=== PATIENT | male | born 1945 | race Caucasian/White ===

== ENCOUNTER 2019-10-26 11:49 | Inpatient (IN) ==
[2019-10-26] MEDS ORDERED: *HR* HYDROmorphone (PF) 1 MG/ML SYRINGE IM ONE (12:10)
[2019-10-26] MEDS ORDERED: Ondansetron 4 MG/2 ML VIAL IM ONE (12:10)
[2019-10-26] MEDS ORDERED: Acetaminophen 325 MG TABLET PO PRN (14:41)
[2019-10-26] MEDS ORDERED: Naloxone 0.4 MG/ML INJ IVP PRN (14:41)
[2019-10-26] MEDS: *HR* Heparin 5,000 UNIT/ML VIAL SQ SCH (18:38)
[2019-10-26] MEDS: carvediloL 6.25 MG TABLET PO SCH (18:38)
[2019-10-26] MEDS: Magnesium Oxide 400 MG TABLET PO SCH (21:18)
[2019-10-26] MEDS: (Tacrolimus [Prograf] 1 MG) PO SCH (21:19)
[2019-10-26] MEDS: *HR* OxyCODONE Immed Rel 5 MG TABLET PO PRN (21:54)
[2019-10-27] MEDS: *HR* HYDROcodone/Acet 5/325 mg TABLET PO PRN ×3 (02:32→15:55)
[2019-10-27 02:59] LABS: Basophils % 0.4 %; Eosinophils % 0.4 %; Hemoglobin 12.4 g/dL (12.9-16.9); Immature Granulocytes % 0.4 % (0-4); Mean Corpuscular HGB Conc 32.6 g/dL (31.6-35.5); Mean Corpuscular Hemoglobin 30.8 pg (28.0-33.3); Mean Corpuscular Volume 94.5 fL (83.0-100.0); Mean Platelet Volume 9.9 fL (9.4-12.4); Monocytes # 0.8 K/mcL (0.0-1.3); Monocytes % 11.5 %; Platelet Count 215 K/mcL (140-400); Red Blood Count 4.02 M/mcL (4.19-5.50); Red Cell Distribution Width 13.6 % (11.5-14.5); Segmented Neutrophils % 72.3 %; White Blood Count 6.9 K/mcL (4.3-11.1)
[2019-10-27 03:19] LABS: BUN/Creatinine Ratio 24 (6-26); Blood Urea Nitrogen 26 mg/dL (8-23); Carbon Dioxide 28 mEq/L (23-29); Chloride 105 mEq/L (98-107); Glucose 118 mg/dL (70-105); Magnesium 1.8 mg/dL (1.6-2.6); Osmolality,Calculated 296 (280-300); Potassium 3.5 mEq/L (3.5-5.1); Sodium 140 mEq/L (136-145); eGFR For African Americans > 60 (> 60); eGFR For Non-African Americans > 60 (> 60)
[2019-10-27] MEDS: *HR* Heparin 5,000 UNIT/ML VIAL SQ SCH ×2 (06:24→15:55)
[2019-10-27] MEDS: Cholecalciferol (D-3) 1,000 UNIT (25MCG) TABLET PO SCH (08:36)
[2019-10-27] MEDS: NIFEdipine XL (24 HR) 30 MG TAB.ER.24 PO SCH (08:36)
[2019-10-27] MEDS: SODIUM ZIRCONIUM CYCLOSILICATE 5 GM POWD.PACK PO SCH (08:36)
[2019-10-27] MEDS: Magnesium Oxide 400 MG TABLET PO SCH ×2 (08:37→21:25)
[2019-10-27] MEDS: Primidone 50 MG TABLET PO SCH (08:38)
[2019-10-27] MEDS: carvediloL 6.25 MG TABLET PO SCH ×2 (08:38→15:55)
[2019-10-27] MEDS: (Tacrolimus [Prograf] 1 MG) PO SCH ×2 (08:38→21:27)
[2019-10-27] MEDS: *HR* OxyCODONE Immed Rel 5 MG TABLET PO PRN (21:26)
[2019-10-28] MEDS: *HR* Heparin 5,000 UNIT/ML VIAL SQ SCH ×2 (05:55→17:47)
[2019-10-28] MEDS: *HR* HYDROcodone/Acet 5/325 mg TABLET PO PRN ×2 (06:13→12:34)
[2019-10-28] MEDS: Primidone 50 MG TABLET PO SCH (09:19)
[2019-10-28] MEDS: carvediloL 6.25 MG TABLET PO SCH ×2 (09:20→17:47)
[2019-10-28] MEDS: Magnesium Oxide 400 MG TABLET PO SCH ×2 (09:21→21:03)
[2019-10-28] MEDS: NIFEdipine XL (24 HR) 30 MG TAB.ER.24 PO SCH (09:21)
[2019-10-28] MEDS: SODIUM ZIRCONIUM CYCLOSILICATE 5 GM POWD.PACK PO SCH (09:22)
[2019-10-28] MEDS: Cholecalciferol (D-3) 1,000 UNIT (25MCG) TABLET PO SCH (09:22)
[2019-10-28] MEDS: Sulfamethoxazole/Trimeth DS 1 EACH TABLET PO SCH (09:36)
[2019-10-28] MEDS: *HR* OxyCODONE Immed Rel 5 MG TABLET PO PRN ×2 (09:53→21:08)
[2019-10-28] MEDS ORDERED: Isovue-370 500 ML BOTTLE IVP ONE (10:16)
[2019-10-28] MEDS: (Tacrolimus [Prograf] 1 MG) PO SCH ×2 (11:20→21:04)
[2019-10-28] MEDS ORDERED: [UNRECOGNIZED DRUG - OTHER] IT ONE (12:17)
[2019-10-28] MEDS: 0.9 % Sodium Chloride 1,000 ML IVC SCH ×2 (12:35→22:48)
[2019-10-28] MEDS: Sennosides/Docusate Sodium TABLET PO SCH (21:03)
[2019-10-29 04:51] LABS: Basophils % 0.3 %; Eosinophils # 0.2 K/mcL (0.0-0.6); Eosinophils % 2.6 %; Hematocrit 38.4 % (37.5-50.1); Hemoglobin 12.4 g/dL (12.9-16.9); Immature Granulocytes % 0.6 % (0-4); Lymphocytes # 0.8 K/mcL (0.6-4.6); Lymphocytes % 12.4 %; Mean Corpuscular HGB Conc 32.3 g/dL (31.6-35.5); Mean Corpuscular Hemoglobin 30.6 pg (28.0-33.3); Mean Corpuscular Volume 94.8 fL (83.0-100.0); Mean Platelet Volume 9.9 fL (9.4-12.4); Monocytes # 0.7 K/mcL (0.0-1.3); Neutrophils # 4.7 K/mcL (1.6-8.9); Platelet Count 215 K/mcL (140-400); Red Blood Count 4.05 M/mcL (4.19-5.50); Red Cell Distribution Width 13.6 % (11.5-14.5); Segmented Neutrophils % 73.1 %; White Blood Count 6.5 K/mcL (4.3-11.1)
[2019-10-29 05:06] LABS: BUN/Creatinine Ratio 21 (6-26); Blood Urea Nitrogen 25 mg/dL (8-23); Calcium 8.3 mg/dL (8.6-10.3); Carbon Dioxide 27 mEq/L (23-29); Chloride 104 mEq/L (98-107); Glucose 103 mg/dL (70-105); Osmolality,Calculated 293 (280-300); Potassium 3.8 mEq/L (3.5-5.1); Sodium 139 mEq/L (136-145); eGFR For African Americans > 60 (> 60); eGFR For Non-African Americans > 60 (> 60)
[2019-10-29] MEDS: *HR* OxyCODONE Immed Rel 5 MG TABLET PO PRN ×2 (06:18→21:35)
[2019-10-29] MEDS: *HR* Heparin 5,000 UNIT/ML VIAL SQ SCH ×2 (06:35→18:48)
[2019-10-29] MEDS: carvediloL 6.25 MG TABLET PO SCH ×2 (07:51→18:48)
[2019-10-29] MEDS: Sennosides/Docusate Sodium TABLET PO SCH ×2 (07:51→21:35)
[2019-10-29] MEDS: SODIUM ZIRCONIUM CYCLOSILICATE 5 GM POWD.PACK PO SCH (07:51)
[2019-10-29] MEDS: NIFEdipine XL (24 HR) 30 MG TAB.ER.24 PO SCH (07:51)
[2019-10-29] MEDS: Cholecalciferol (D-3) 1,000 UNIT (25MCG) TABLET PO SCH (07:51)
[2019-10-29] MEDS: Primidone 50 MG TABLET PO SCH (07:52)
[2019-10-29] MEDS: Magnesium Oxide 400 MG TABLET PO SCH ×2 (07:52→21:35)
[2019-10-29] MEDS: (Tacrolimus [Prograf] 1 MG) PO SCH ×2 (08:05→21:36)
[2019-10-29 17:20] LABS: Activated Partial Thrombo Time 28.1 Seconds (26.0-36.0)
[2019-10-29 17:38] LABS: Prothrombin Time 11.2 Seconds (9.4-12.1)
[2019-10-30] MEDS: *HR* Heparin 5,000 UNIT/ML VIAL SQ SCH (04:59)
[2019-10-30 05:25] LABS: BUN/Creatinine Ratio 21 (6-26); Blood Urea Nitrogen 23 mg/dL (8-23); Calcium 8.9 mg/dL (8.6-10.3); Carbon Dioxide 28 mEq/L (23-29); Chloride 102 mEq/L (98-107); Glucose 87 mg/dL (70-105); Osmolality,Calculated 287 (280-300); Potassium 3.7 mEq/L (3.5-5.1); Sodium 137 mEq/L (136-145); eGFR For African Americans > 60 (> 60); eGFR For Non-African Americans > 60 (> 60)
[2019-10-30] MEDS ORDERED: Bacitracin 50,000 UNIT, Polymyxin B Sulfate 500,000 UNIT, Sodium Chloride IRRigation 1,... IR ONE (06:00)
[2019-10-30] MEDS: Magnesium Oxide 400 MG TABLET PO SCH (08:44)
[2019-10-30] MEDS: carvediloL 6.25 MG TABLET PO SCH ×3 (08:45→22:40)
[2019-10-30] MEDS: SODIUM ZIRCONIUM CYCLOSILICATE 5 GM POWD.PACK PO SCH (08:45)
[2019-10-30] MEDS: Primidone 50 MG TABLET PO SCH (08:45)
[2019-10-30] MEDS: NIFEdipine XL (24 HR) 30 MG TAB.ER.24 PO SCH (08:46)
[2019-10-30] MEDS: Cholecalciferol (D-3) 1,000 UNIT (25MCG) TABLET PO SCH (08:46)
[2019-10-30] MEDS: Sennosides/Docusate Sodium TABLET PO SCH (08:47)
[2019-10-30] MEDS: (Tacrolimus [Prograf] 1 MG) PO SCH (08:53)
[2019-10-30] MEDS: Sulfamethoxazole/Trimeth DS 1 EACH TABLET PO SCH (08:53)
[2019-10-30] MEDS ORDERED: Dexamethasone 4 MG/ML VIAL ONE (10:44)
[2019-10-30] MEDS ORDERED: Ondansetron 4 MG/2 ML VIAL ONE (10:44)
[2019-10-30] MEDS ORDERED: Lidocaine HCL 4 ML Topical Solution (Laryng-O-Jet Kit Sterile Pak) TP ONE (10:44)
[2019-10-30] MEDS ORDERED: *HR* Rocuronium Bromide 50 MG/5 ML VIAL ONE (10:44)
[2019-10-30] MEDS ORDERED: Lidocaine -MPF 2% 2 ML VIAL ONE (10:44)
[2019-10-30] MEDS ORDERED: *HR* FentaNYL (PF) 100 MCG/2 ML VIAL ONE (10:45)
[2019-10-30] MEDS ORDERED: *HR* Propofol 200 MG/20 ML VIAL IVP ONE (10:46)
[2019-10-30] MEDS ORDERED: *HR* Succinylcholine 200 MG/10 ML VIAL IVP ONE (10:46)
[2019-10-30] MEDS ORDERED: *HR* Remifentanil 1 MG VIAL IVP ONE (10:53)
[2019-10-30] MEDS ORDERED: *HR* PHENYLEPHRINE 1,000 MCG/10 ML SYRINGE IVP ONE (12:32)
[2019-10-30] MEDS ORDERED: *HR* Phenylephrine 10 MG/ML VIAL ONE (12:41)
[2019-10-30] MEDS ORDERED: EPHEDrine 50 MG/ML VIAL ONE (12:43)
[2019-10-30] MEDS ORDERED: *HR* Midazolam HCl 2 MG/2 ML VIAL ONE (12:53)
[2019-10-30] MEDS ORDERED: *HR* Vasopressin 20 UNIT/ML VIAL ONE (13:43)
[2019-10-30] MEDS ORDERED: Neostigmine Methylsulfate 3 MG/3 ML SYRINGE ONE (15:07)
[2019-10-30] MEDS ORDERED: *HR* HYDROMORPHONE 2 MG/ML VIAL ONE (15:12)
[2019-10-30] MEDS: *HR* HYDROmorphone (PF) 1 MG/ML SYRINGE IVP PRN ×2 (16:15→16:25)
[2019-10-30] MEDS ORDERED: Ondansetron 4 MG/2 ML VIAL IVP PRN (17:10)
[2019-10-30] MEDS ORDERED: Naloxone 0.4 MG/ML INJ IVP PRN (17:10)
[2019-10-30] MEDS ORDERED: Acetaminophen 325 MG TABLET PO PRN (17:10)
[2019-10-30] MEDS ORDERED: *HR* HYDROcodone/Acet 5/325 mg TABLET PO PRN (17:10)
[2019-10-30] MEDS: *HR* OxyCODONE Immed Rel 5 MG TABLET PO PRN (21:06)
[2019-10-30] MEDS: Ringers Solution, Lactated 1,000 ML IVC SCH (21:06)
[2019-10-31] MEDS: *HR* OxyCODONE Immed Rel 5 MG TABLET PO PRN ×5 (02:10→20:46)
[2019-10-31] MEDS: Aspirin 81 MG TAB.CHEW PO SCH (08:15)
[2019-10-31] MEDS: carvediloL 6.25 MG TABLET PO SCH ×2 (08:15→16:52)
[2019-10-31] MEDS: (Tacrolimus [Prograf] 1 MG) PO SCH (09:51)
[2019-10-31] MEDS: SODIUM ZIRCONIUM CYCLOSILICATE 5 GM POWD.PACK PO SCH (09:52)
[2019-10-31] MEDS: TACROLIMUS 1 MG PO SCH ×2 (10:04→19:55)
[2019-10-31] MEDS: Primidone 50 MG TABLET PO SCH (11:44)
[2019-10-31] MEDS: Cholecalciferol (D-3) 1,000 UNIT (25MCG) TABLET PO SCH (11:46)
[2019-10-31] MEDS: Ringers Solution, Lactated 1,000 ML IVC SCH (19:49)
[2019-11-01] MEDS: *HR* OxyCODONE Immed Rel 5 MG TABLET PO PRN ×3 (02:11→21:54)
[2019-11-01 05:30] LABS: Basophils % 0.2 %; Eosinophils # 0.2 K/mcL (0.0-0.6); Eosinophils % 2.5 %; Hematocrit 37.5 % (37.5-50.1); Hemoglobin 12.4 g/dL (12.9-16.9); Immature Granulocytes % 0.6 % (0-4); Lymphocytes # 0.9 K/mcL (0.6-4.6); Lymphocytes % 10.2 %; Mean Corpuscular HGB Conc 33.1 g/dL (31.6-35.5); Mean Corpuscular Hemoglobin 31.3 pg (28.0-33.3); Mean Corpuscular Volume 94.7 fL (83.0-100.0); Mean Platelet Volume 10.1 fL (9.4-12.4); Monocytes # 1.3 K/mcL (0.0-1.3); Monocytes % 15.3 %; Neutrophils # 6.2 K/mcL (1.6-8.9); Platelet Count 190 K/mcL (140-400); Red Blood Count 3.96 M/mcL (4.19-5.50); Red Cell Distribution Width 13.5 % (11.5-14.5); Segmented Neutrophils % 71.2 %; White Blood Count 8.7 K/mcL (4.3-11.1)
[2019-11-01 05:48] LABS: BUN/Creatinine Ratio 23 (6-26); Blood Urea Nitrogen 27 mg/dL (8-23); Calcium 8.5 mg/dL (8.6-10.3); Carbon Dioxide 25 mEq/L (23-29); Chloride 102 mEq/L (98-107); Glucose 114 mg/dL (70-105); Magnesium 1.7 mg/dL (1.6-2.6); Osmolality,Calculated 286 (280-300); Phosphorous 2.5 mg/dL (2.7-4.5); Sodium 135 mEq/L (136-145); eGFR For African Americans > 60 (> 60); eGFR For Non-African Americans > 60 (> 60)
[2019-11-01] MEDS: Cholecalciferol (D-3) 1,000 UNIT (25MCG) TABLET PO SCH (10:16)
[2019-11-01] MEDS: Primidone 50 MG TABLET PO SCH (10:17)
[2019-11-01] MEDS: Aspirin 81 MG TAB.CHEW PO SCH (10:18)
[2019-11-01] MEDS: carvediloL 6.25 MG TABLET PO SCH ×2 (10:18→16:09)
[2019-11-01] MEDS ORDERED: Furosemide 20 MG/2 ML VIAL IVP ONE (11:22)
[2019-11-01] MEDS: Sulfamethoxazole/Trimeth DS 1 EACH TABLET PO SCH (16:04)
[2019-11-01] MEDS: TACROLIMUS 1 MG PO SCH ×2 (16:07→21:55)
[2019-11-01] MEDS: SODIUM ZIRCONIUM CYCLOSILICATE 5 GM POWD.PACK PO SCH (18:18)
[2019-11-02] MEDS: *HR* OxyCODONE Immed Rel 5 MG TABLET PO PRN ×2 (04:35→17:20)
[2019-11-02 06:56] LABS: Basophils % 0.2 %; Eosinophils # 0.1 K/mcL (0.0-0.6); Eosinophils % 0.9 %; Hematocrit 32.8 % (37.5-50.1); Hemoglobin 10.9 g/dL (12.9-16.9); Immature Granulocytes % 0.8 % (0-4); Lymphocytes # 0.7 K/mcL (0.6-4.6); Lymphocytes % 7.1 %; Mean Corpuscular HGB Conc 33.2 g/dL (31.6-35.5); Mean Corpuscular Hemoglobin 30.8 pg (28.0-33.3); Mean Corpuscular Volume 92.7 fL (83.0-100.0); Mean Platelet Volume 10.6 fL (9.4-12.4); Monocytes # 1.3 K/mcL (0.0-1.3); Monocytes % 13.8 %; Neutrophils # 7.5 K/mcL (1.6-8.9); Platelet Count 211 K/mcL (140-400); Red Blood Count 3.54 M/mcL (4.19-5.50); Red Cell Distribution Width 13.6 % (11.5-14.5); Segmented Neutrophils % 77.2 %; White Blood Count 9.7 K/mcL (4.3-11.1)
[2019-11-02 07:08] LABS: BUN/Creatinine Ratio 23 (6-26); Blood Urea Nitrogen 29 mg/dL (8-23); Calcium 8.2 mg/dL (8.6-10.3); Carbon Dioxide 23 mEq/L (23-29); Chloride 102 mEq/L (98-107); Glucose 148 mg/dL (70-105); Magnesium 1.6 mg/dL (1.6-2.6); Osmolality,Calculated 287 (280-300); Phosphorous 2.8 mg/dL (2.7-4.5); Sodium 134 mEq/L (136-145); eGFR For African Americans > 60 (> 60); eGFR For Non-African Americans 57 (> 60)
[2019-11-02] MEDS: Primidone 50 MG TABLET PO SCH (09:05)
[2019-11-02] MEDS: SODIUM ZIRCONIUM CYCLOSILICATE 5 GM POWD.PACK PO SCH (09:05)
[2019-11-02] MEDS: carvediloL 6.25 MG TABLET PO SCH ×2 (09:05→16:23)
[2019-11-02] MEDS: Aspirin 81 MG TAB.CHEW PO SCH (09:05)
[2019-11-02] MEDS: Cholecalciferol (D-3) 1,000 UNIT (25MCG) TABLET PO SCH (09:05)
[2019-11-02] MEDS: TACROLIMUS 1 MG PO SCH ×2 (09:07→22:03)
[2019-11-02] MEDS ORDERED: Furosemide 20 MG/2 ML VIAL IVP ONE (10:34)
[2019-11-03] MEDS: *HR* OxyCODONE Immed Rel 5 MG TABLET PO PRN ×4 (00:32→21:42)
[2019-11-03] MEDS: Primidone 50 MG TABLET PO SCH (07:29)
[2019-11-03] MEDS: Aspirin 81 MG TAB.CHEW PO SCH (07:29)
[2019-11-03] MEDS: carvediloL 6.25 MG TABLET PO SCH ×2 (07:29→16:10)
[2019-11-03] MEDS: SODIUM ZIRCONIUM CYCLOSILICATE 5 GM POWD.PACK PO SCH (07:30)
[2019-11-03] MEDS: TACROLIMUS 1 MG PO SCH ×2 (07:32→20:20)
[2019-11-03] MEDS: Cholecalciferol (D-3) 1,000 UNIT (25MCG) TABLET PO SCH (07:33)
[2019-11-03 09:30] LABS: Basophils % 0.1 %; Eosinophils # 0.1 K/mcL (0.0-0.6); Eosinophils % 1.2 %; Hematocrit 33.5 % (37.5-50.1); Hemoglobin 11.2 g/dL (12.9-16.9); Immature Granulocytes % 0.8 % (0-4); Lymphocytes # 0.6 K/mcL (0.6-4.6); Lymphocytes % 6.5 %; Mean Corpuscular HGB Conc 33.4 g/dL (31.6-35.5); Mean Corpuscular Hemoglobin 30.6 pg (28.0-33.3); Mean Corpuscular Volume 91.5 fL (83.0-100.0); Mean Platelet Volume 10.7 fL (9.4-12.4); Monocytes # 1.1 K/mcL (0.0-1.3); Monocytes % 13.1 %; Neutrophils # 6.8 K/mcL (1.6-8.9); Platelet Count 240 K/mcL (140-400); Red Blood Count 3.66 M/mcL (4.19-5.50); Red Cell Distribution Width 13.5 % (11.5-14.5); Segmented Neutrophils % 78.3 %; White Blood Count 8.7 K/mcL (4.3-11.1)
[2019-11-03 09:38] LABS: BUN/Creatinine Ratio 28 (6-26); Blood Urea Nitrogen 34 mg/dL (8-23); Calcium 8.3 mg/dL (8.6-10.3); Carbon Dioxide 25 mEq/L (23-29); Chloride 102 mEq/L (98-107); Glucose 152 mg/dL (70-105); Magnesium 1.5 mg/dL (1.6-2.6); Osmolality,Calculated 291 (280-300); Phosphorous 3.1 mg/dL (2.7-4.5); Potassium 3.7 mEq/L (3.5-5.1); Sodium 135 mEq/L (136-145); eGFR For African Americans > 60 (> 60); eGFR For Non-African Americans 58 (> 60)
[2019-11-03] MEDS ORDERED: Lidocaine 1% 20 ML MDV INFILT ONE (14:49)
[2019-11-03 16:35] LABS: Source,Synovial Fluid left knee
[2019-11-03 16:51] LABS: Appearance,Synovial Fluid Hazy (Clear-Hazy); Color,Synovial Fluid Straw (Straw)
[2019-11-03 17:01] LABS: Glucose,Synovial Fluid 200 mg/dL (No Ref Range); LDH,Synovial Fluid 229 Units/L (No Ref Range)
[2019-11-04 03:03] LABS: Basophils % 0.3 %; Eosinophils # 0.2 K/mcL (0.0-0.6); Eosinophils % 1.9 %; Hematocrit 31.4 % (37.5-50.1); Hemoglobin 10.5 g/dL (12.9-16.9); Immature Granulocytes % 0.5 % (0-4); Lymphocytes % 13.2 %; Mean Corpuscular HGB Conc 33.4 g/dL (31.6-35.5); Mean Corpuscular Hemoglobin 31.3 pg (28.0-33.3); Mean Corpuscular Volume 93.5 fL (83.0-100.0); Mean Platelet Volume 10.3 fL (9.4-12.4); Monocytes # 1.1 K/mcL (0.0-1.3); Monocytes % 13.8 %; Neutrophils # 5.5 K/mcL (1.6-8.9); Platelet Count 252 K/mcL (140-400); Red Blood Count 3.36 M/mcL (4.19-5.50); Red Cell Distribution Width 13.3 % (11.5-14.5); Segmented Neutrophils % 70.3 %; White Blood Count 7.9 K/mcL (4.3-11.1)
[2019-11-04 03:24] LABS: BUN/Creatinine Ratio 30 (6-26); Blood Urea Nitrogen 39 mg/dL (8-23); Calcium 8.5 mg/dL (8.6-10.3); Carbon Dioxide 24 mEq/L (23-29); Chloride 102 mEq/L (98-107); Glucose 167 mg/dL (70-105); Magnesium 1.5 mg/dL (1.6-2.6); Osmolality,Calculated 291 (280-300); Phosphorous 2.9 mg/dL (2.7-4.5); Potassium 3.5 mEq/L (3.5-5.1); Sodium 134 mEq/L (136-145); eGFR For African Americans > 60 (> 60); eGFR For Non-African Americans 54 (> 60)
[2019-11-04] MEDS: *HR* OxyCODONE Immed Rel 5 MG TABLET PO PRN (05:04)
[2019-11-04] MEDS ORDERED: polyethylene glycoL 3350 17 GM POWD.PACK PO PRN (05:19)
[2019-11-04] MEDS ORDERED: 0.9 % Sodium Chloride 1,000 ML IVC SCH (05:30)
[2019-11-04] MEDS ORDERED: Magnesium Oxide 400 MG TABLET PO SCH (09:00)
[2019-11-04] MEDS: Sulfamethoxazole/Trimeth DS 1 EACH TABLET PO SCH (10:20)
[2019-11-04] MEDS: Primidone 50 MG TABLET PO SCH (10:20)
[2019-11-04] MEDS: carvediloL 6.25 MG TABLET PO SCH ×2 (10:20→16:44)
[2019-11-04] MEDS: Aspirin 81 MG TAB.CHEW PO SCH (10:20)
[2019-11-04] MEDS: Cholecalciferol (D-3) 1,000 UNIT (25MCG) TABLET PO SCH (10:20)
[2019-11-04] MEDS: TACROLIMUS 1 MG PO SCH (10:21)
[2019-11-04] MEDS: SODIUM ZIRCONIUM CYCLOSILICATE 5 GM POWD.PACK PO SCH (10:21)
[2019-11-04] MEDS ORDERED: Simethicone 80 MG TAB.CHEW PO ONE (12:51)
[2019-11-04] MEDS ORDERED: Simethicone 80 MG TAB.CHEW PO PRN (12:51)
[2019-11-04] MEDS ORDERED: Lactulose Oral Soln 20 GM/30 ML UDC PO ONE (15:37)
[2019-11-04 17:34] VITALS: BP 151/81
== END 2019-11-04 18:40 | DRG 454 ==
LOC: 3ANU 11:49 → EMEROOARM 11:49 → SUATTDRO 15:57 → 3ANU 17:40 → SUATTDRO 10-27 11:46 → 3NENU 10-30 12:58 → 3ANU 10-30 12:59 → 3NENU 10-30 14:46
PROVIDERS: ADMIT Internal Medicine; ATTEND Internal Medicine